=== PATIENT | female | born 1990 | race African-American/Black ===

== ENCOUNTER 2016-05-29 14:02 | Emergency (ER) | payer MEDICAID ==
[2015-06-18 01:50] VITALS: BMI 26.5
[~2016-05-29 14:02] MED LIST: IBUPROFEN600 MG PO; PERCOCET 5-3251 TAB PO; PRENATAL COMPLE1 TAB PO
== END 2016-05-29 15:53 | disposition home or self-care (01) ==
LOC: D.ER 14:02
DX: S16.1XXA Strain of muscle, fascia and tendon at neck level, initial encounter (principal); V43.62XA Car passenger injured in collision with other type car in traffic accident, initial encounter; Y93.89 Activity, other specified; Y92.410 Unspecified street and highway as the place of occurrence of the external cause; S46.911A Strain of unspecified muscle, fascia and tendon at shoulder and upper arm level, right arm, initial encounter; F32.9 Major depressive disorder, single episode, unspecified

== ENCOUNTER 2016-12-16 20:02 | Emergency (ER) | payer MEDICAID ==
[2015-06-18 01:50] VITALS: BMI 26.5
[2016-12-16 21:57] LABS: APPEARANCE CLEAR (CLEAR); BILIRUBIN NEGATIVE (NEGATIVE); COLOR YELLOW (YELLOW); GLUCOSE NEGATIVE (NEGATIVE); KETONE NEGATIVE (NEGATIVE); LEUKOCYTE ESTERASE TRACE (NEGATIVE); NITRITE NEGATIVE (NEGATIVE); PROTEIN NEGATIVE (NEGATIVE); SPECIFIC GRAVITY 1.025 (1.005-1.020); UROBILINOGEN NORMAL (NORMAL)
[2016-12-16 22:03] LABS: BACTERIA FEW /hpf (NONE SEEN); EPITHELIAL CELLS 0-5 /hpf (0-5); RED CELLS - URINE 0-5 /hpf (0-5)
[2016-12-16 23:12] LABS: HCG URINE NEGATIVE (NEGATIVE)
== END 2016-12-16 23:38 | disposition home or self-care (01) ==
LOC: D.ER 20:02
PROVIDERS: Physician Assistant Medical
DX: N39.0 Urinary tract infection, site not specified (principal); R39.11 Hesitancy of micturition; R35.0 Frequency of micturition; R30.0 Dysuria; R10.9 Unspecified abdominal pain

== ENCOUNTER 2017-04-14 10:40 | Emergency (ER) | payer MEDICAID ==
[2015-06-18 01:50] VITALS: BMI 26.5
== END 2017-04-14 12:55 | disposition home or self-care (01) ==
LOC: D.ER 10:40
DX: J01.90 Acute sinusitis, unspecified (principal); J20.9 Acute bronchitis, unspecified

== ENCOUNTER 2017-08-23 18:13 | Emergency (ER) | payer MEDICAID ==
[2015-06-18 01:50] VITALS: BMI 26.5
[2017-08-23 18:52] LABS: APPEARANCE CLEAR (CLEAR); BILIRUBIN NEGATIVE (NEGATIVE); COLOR YELLOW (YELLOW); GLUCOSE NEGATIVE (NEGATIVE); KETONE NEGATIVE (NEGATIVE); NITRITE NEGATIVE (NEGATIVE); PROTEIN NEGATIVE (NEGATIVE); SPECIFIC GRAVITY 1.015 (1.005-1.020); UROBILINOGEN NORMAL (NORMAL)
[2017-08-23 18:53] LABS: BACTERIA FEW /hpf (NONE SEEN); EPITHELIAL CELLS 0-5 /hpf (0-5); RED CELLS - URINE OCC /hpf (0-5)
[2017-08-23 19:45] LABS: BASOPHILS 0.4 % (0-2); EOSINOPHILS 5.1 % (0-7); HEMATOCRIT 43.9 % (36.0-48.0); HEMOGLOBIN 14.9 g/dL (12-16); IMMATURE GRANULOCYTES 0.2 % (0-5); LYMPHOCYTES 29.3 % (15-50); MCH 28.4 pg (26.0-34.0); MCHC 33.9 g/dL (31.0-37.0); MCV 83.8 fL (80.0-100.0); MEAN PLATELET VOLUME 9.9 fL (7.4-10.4); MONOCYTES 7.1 % (2-11); NEUTROPHILS 57.9 % (40-80); PLATELET COUNT 242 10x3/uL (130-400); RBC 5.24 10x6/uL (4.00-5.40); RDW 13.1 % (11.5-14.5); WBC 5.1 10x3/uL (4.8-10.8)
[2017-08-23 20:15] LABS: ALBUMIN 3.9 g/dL (3.4-5.0); ALKALINE PHOSPHATASE 79 U/L (46-116); ALT (SGPT) 20 U/L (10-68); BILIRUBIN - TOTAL 0.43 mg/dL (0.2-1.3); CALC OSMOLALITY 275 mosm/kg (275-300); CALCIUM 9.1 mg/dL (8.5-10.1); CARBON DIOXIDE 24.6 mmol/L (21.0-32.0); CHLORIDE - SERUM 106 mmol/L (98-107); CREATININE - SERUM 0.8 mg/dL (0.6-1.3); GLUCOSE 88 mg/dL (74-106); PROTEIN - SERUM 8.4 g/dL (6.4-8.2); SODIUM 139 mmol/L (136-145); UREA NITROGEN 9 mg/dL (7-18); eGFR NON AFRICAN AMERICAN > 90 mL/min (90-120)
[2017-08-23 20:21] LABS: HCG - QUANTITATIVE (MATERNAL) 0 mIU/mL
[2017-08-23 20:50] LABS: AMYLASE - SERUM 56 U/L (25-115); LIPASE 160 U/L (73-393)
== END 2017-08-23 22:07 | disposition home or self-care (01) ==
LOC: D.ER 18:13
PROVIDERS: Emergency Medicine; Nurse Practitioner Family
DX: K59.00 Constipation, unspecified (principal); R10.9 Unspecified abdominal pain

== ENCOUNTER 2018-01-03 11:49 | Emergency (ER) | payer MEDICAID ==
[~2018-01-03] VITALS: Ht 162.6 cm; Wt 69.1 kg
[2018-01-03 12:18] VITALS: BP 137/93; Ht 162.6 cm; Wt 69.1 kg
[2018-01-03 13:12] LABS: BASOPHILS 0.4 % (0-2); EOSINOPHILS 3.2 % (0-7); HEMATOCRIT 41.3 % (36.0-48.0); IMMATURE GRANULOCYTES 0.2 % (0-5); LYMPHOCYTES 14.5 % (15-50); MCH 28.6 pg (26.0-34.0); MCHC 33.9 g/dL (31.0-37.0); MCV 84.5 fL (80.0-100.0); MEAN PLATELET VOLUME 9.5 fL (7.4-10.4); MONOCYTES 9.7 % (2-11); PLATELET COUNT 196 10x3/uL (130-400); RBC 4.89 10x6/uL (4.00-5.40); RDW 13.3 % (11.5-14.5)
[2018-01-03 13:34] LABS: ALBUMIN 3.8 g/dL (3.4-5.0); ALKALINE PHOSPHATASE 85 U/L (46-116); ALT (SGPT) 22 U/L (10-68); BILIRUBIN - TOTAL 0.34 mg/dL (0.2-1.3); CALC OSMOLALITY 275 mosm/kg (275-300); CALCIUM 8.7 mg/dL (8.5-10.1); CARBON DIOXIDE 29.1 mmol/L (21.0-32.0); CHLORIDE - SERUM 105 mmol/L (98-107); CREATININE - SERUM 0.9 mg/dL (0.6-1.3); GLUCOSE 97 mg/dL (74-106); POTASSIUM - SERUM 3.6 mmol/L (3.5-5.1); PROTEIN - SERUM 8.2 g/dL (6.4-8.2); SODIUM 139 mmol/L (136-145); UREA NITROGEN 7 mg/dL (7-18); eGFR NON AFRICAN AMERICAN 81 mL/min (90-120)
[2018-01-03] MEDS ORDERED: OMNICEF300 MG PO (15:52)
== END 2018-01-03 17:13 | disposition home or self-care (01) ==
LOC: D.ER 11:49
PROVIDERS: Emergency Medicine
DX: J20.9 Acute bronchitis, unspecified (principal); R42 Dizziness and giddiness

== ENCOUNTER 2018-03-13 11:58 | Emergency (ER) | payer MEDICAID ==
[~2018-03-13] VITALS: Ht 162.6 cm; Wt 71.4 kg
[~2018-03-13 11:58] MED LIST changes: +OMNICEF300 MG PO
[2018-03-13 12:11] VITALS: BP 128/69; Ht 162.6 cm; Wt 71.4 kg
[2018-03-13] MEDS ORDERED: ZOFRAN ODT4 MG/UDTAB PO (12:40)
== END 2018-03-13 12:46 | disposition home or self-care (01) ==
LOC: D.ER 11:58
DX: A08.4 Viral intestinal infection, unspecified (principal)

== ENCOUNTER 2018-07-29 16:13 | Emergency (ER) | payer MEDICAID ==
[~2018-07-29] VITALS: Ht 162.6 cm; Wt 65.8 kg
[~2018-07-29 16:13] MED LIST changes: +ZOFRAN ODT4 MG/UDTAB PO
[2018-07-29 16:23] VITALS: BP 130/81; Ht 162.6 cm; Wt 65.8 kg
[2018-07-29] MEDS ORDERED: EC-NAPROSYN500 MG PO (19:45)
[2018-07-29] MEDS ORDERED: CYCLOBENZAPRINE10 MG PO (19:45)
== END 2018-07-29 20:19 | disposition home or self-care (01) ==
LOC: D.ER 16:13
DX: S13.4XXA Sprain of ligaments of cervical spine, initial encounter (principal); V49.49XA Driver injured in collision with other motor vehicles in traffic accident, initial encounter; M62.838 Other muscle spasm

== ENCOUNTER 2019-07-09 11:29 | Emergency (ER) | payer OTHER ==
[~2019-07-09] VITALS: Ht 162.6 cm; Wt 69.5 kg
[~2019-07-09 11:29] MED LIST changes: +CYCLOBENZAPRINE10 MG PO; +EC-NAPROSYN500 MG PO
[2019-07-09 11:35] VITALS: Ht 162.6 cm; Wt 69.5 kg
[2019-07-09 12:14] LABS: BILIRUBIN NEGATIVE (NEGATIVE); GLUCOSE NEGATIVE (NEGATIVE); KETONE NEGATIVE (NEGATIVE); NITRITE NEGATIVE (NEGATIVE); SPECIFIC GRAVITY 1.015 (1.005-1.020); UROBILINOGEN NORMAL (NORMAL)
[2019-07-09 12:35] LABS: BASOPHILS 0.4 % (0-2); EOSINOPHILS 4.3 % (0-7); HEMATOCRIT 39.8 % (36.0-48.0); HEMOGLOBIN 13.3 g/dL (12-16); IMMATURE GRANULOCYTES 0.2 % (0-5); LYMPHOCYTES 29.3 % (15-50); MCH 28.1 pg (26.0-34.0); MCHC 33.4 g/dL (31.0-37.0); MCV 84.1 fL (80.0-100.0); MEAN PLATELET VOLUME 9.5 fL (7.4-10.4); MONOCYTES 8.7 % (2-11); NEUTROPHILS 57.1 % (40-80); RBC 4.73 10x6/uL (4.00-5.40); RDW 12.8 % (11.5-14.5); WBC 4.9 10x3/uL (4.8-10.8)
[2019-07-09 12:36] LABS: HCG SERUM NEGATIVE (NEGATIVE)
[2019-07-09 12:37] LABS: CALC OSMOLALITY 266 mosm/kg (275-300); CALCIUM 8.9 mg/dL (8.5-10.1); CARBON DIOXIDE 26.3 mmol/L (21.0-32.0); CHLORIDE - SERUM 101 mmol/L (98-107); CREATININE - SERUM 0.8 mg/dL (0.6-1.3); GLUCOSE 92 mg/dL (74-106); POTASSIUM - SERUM 3.9 mmol/L (3.5-5.1); SODIUM 134 mmol/L (136-145); UREA NITROGEN 10 mg/dL (7-18); eGFR NON AFRICAN AMERICAN > 90 mL/min (90-120)
[2019-07-09 12:38] LABS: PLATELET COUNT 278 10x3/uL (130-400)
[2019-07-09] MEDS ORDERED: METHOCARBAMOL500 MG PO (13:46)
[2019-07-09] MEDS ORDERED: IBUPROFEN800 MG PO (13:46)
[2019-07-09 14:29] VITALS: BP 126/85
== END 2019-07-09 13:55 | disposition home or self-care (01) ==
LOC: D.ER 11:29
PROVIDERS: Emergency Medicine
DX: S39.012A Strain of muscle, fascia and tendon of lower back, initial encounter (principal); R30.0 Dysuria

== ENCOUNTER 2020-10-27 14:01 | Emergency (ER) | payer OTHER ==
[~2020-10-27] VITALS: Ht 162.6 cm; Wt 69.1 kg
[~2020-10-27 14:01] MED LIST changes: +IBUPROFEN800 MG PO; +METHOCARBAMOL500 MG PO
[2020-10-27 14:20] VITALS: Ht 162.6 cm; Wt 69.1 kg
[2020-10-27] MEDS ORDERED: METHOCARBAMOL500 MG PO (15:19)
[2020-10-27] MEDS ORDERED: NAPROSYN500 MG PO (15:19)
[2020-10-27 18:14] VITALS: BP 131/93
== END 2020-10-27 18:22 | disposition home or self-care (01) ==
LOC: D.ER 14:01
DX: S16.1XXA Strain of muscle, fascia and tendon at neck level, initial encounter (principal); S09.90XA Unspecified injury of head, initial encounter; S20.214A Contusion of middle front wall of thorax, initial encounter; V89.2XXA Person injured in unspecified motor-vehicle accident, traffic, initial encounter; Y93.9 Activity, unspecified; Y92.9 Unspecified place or not applicable